=== PATIENT | female | born 1990 | race Caucasian/White ===

== ENCOUNTER 2017-06-09 14:02 | Inpatient (IN) | payer MEDICARE, MEDICAID ==
[~2017-06-09] VITALS: Ht 162.6 cm; Wt 131.3 kg
[2017-06-09 14:08] VITALS: BP 147/95; PULSE 89; RESP 17; TEMP 97.8; O2SAT 98
--- NOTE | 2017-06-09 16:51 | PD ---
HPI Chief Complaint: Psychiatric Symptoms Time Seen by Provider: 16:36 Travel History International Travel<30 days: No Contact w/Intl Traveler<30days: No Traveled to known affect area: No History of Present Illness HPI 27-year-old female presents emergency department Via [facility] department voluntarily with suicidal ideation. She states increased depression in the last couple of weeks. She has no specific plan. Patient has history of depression in the past. She takes no medications. She denies alcohol or drug use. She denies . She has no acute medical complaints. She has no known drug allergies. [facility] Past Medical History ?: Not LMP: 05/2017 Social History Alcohol Use: Yes Tobacco Use: No Substance Use: No Allergies-Medications (Allergen,Severity, Reaction): Coded Allergies: No Known Allergies (Unverified , 06/09/17) Review of Systems Except as stated in HPI: all other systems reviewed are Neg General / Constitutional: No: Fever Eyes: No: Visual changes HENT: No: Headaches Cardiovascular: No: Chest Pain or Discomfort Respiratory: No: Shortness of Breath Gastrointestinal: No: Abdominal Pain Genitourinary: No: Dysuria Musculoskeletal: No: Pain Skin: No Rash Neurologic: No: Weakness Psychiatric: Positive: Depression, Suicidal Ideations Endocrine: No: Polydipsia Hematologic/Lymphatic: No: Easy Bruising Physical Exam Narrative GENERAL: Patient appears in no acute distress. She has moderately obese. SKIN: Warm and dry. Normal color. Normal turgor. No signs of trauma. HEAD: Atraumatic. Normocephalic. EYES: Pupils equal and round. No scleral icterus. No injection or drainage. ENT: No nasal bleeding or discharge. Mucous membranes pink and moist. Pharynx is clear. Airways patent NECK: Trachea midline. Supple and nontender. CARDIOVASCULAR: Regular rate and rhythm. RESPIRATORY: No accessory muscle use. Clear to auscultation. Breath sounds equal bilaterally. GASTROINTESTINAL: Abdomen soft, non-tender, nondistended. Hepatic and splenic margins not palpable. MUSCULOSKELETAL: Extremities without clubbing, cyanosis, or edema. No obvious deformities. NEUROLOGICAL: Awake and alert. No obvious cranial nerve deficits. Motor grossly within normal limits. Five out of 5 muscle strength in the arms and legs. Normal speech. PSYCHIATRIC: Appropriate mood and affect; insight and judgment normal. Data Data Last Documented VS Vital Signs Date Time Temp Pulse Resp B/P (MAP) Pulse Ox O2 Delivery O2 Flow Rate FiO2 06/09/17 14:08 97.8 89 17 147/95 (112) 98 Orders Orders Complete Blood Count With Diff (06/09/17 16:47) Comprehensive Metabolic Panel (06/09/17 16:47) Thyroid Stimulating Hormone (06/09/17 16:47) Urinalysis - C+S If Indicated (06/09/17 16:47) Ed Urine Pregnancytest Poc (06/09/17 16:47) Psych Screen (06/09/17 16:47) Drug Screen, Random Urine (06/09/17 16:47) MDM Medical Decision Making Medical Screen Exam Complete: Yes Emergency Medical Condition: Yes Differential Diagnosis Suicidal. Depression. Need for psychiatric evaluation. Narrative Course Psychiatric labs ordered per protocol including test. Patient is medically cleared for psychiatric evaluation. Psych screen is ordered. Condition: Stable Trevor Valadez Jun 09, 2017 16:51
[2017-06-09 18:23] LABS: AMORPHOUS SEDIMENT, URINE RARE; BACTERIA, URINE RARE /hpf; BILIRUBIN, URINE NEG (NEG); BLOOD, URINE NEG (NEG); GLUCOSE,URINE NEG (NEG); KETONE, URINE NEG (NEG); MUCUS URINE MOD /lpf (OCC); NITRITE,URINE NEG (NEG); PH, URINE 6.5 (5.0-8.5); SQUAMOUS EPITHELIAL CELL URINE 23 /hpf (0-5); URINE COLOR YELLOW (YELLW/STRAW); URINE LEUKOCYTE ESTERASE TRACE (NEG)
[2017-06-09 18:28] VITALS: BP 122/76; PULSE 85; RESP 16; O2SAT 98
[2017-06-09 19:41] LABS: AUTOMATED NEUTROPHIL # 8.2 TH/MM3 (1.8-7.7); BASOPHIL # 0.1 TH/MM3 (0-0.2); BASOPHIL % 0.6 % (0.0-2.0); EOSINOPHIL # 0.1 TH/MM3 (0-0.4); EOSINOPHIL % 0.9 % (0.0-4.0); HEMATOCRIT 42.4 % (35.0-46.0); HEMOGLOBIN 14.1 GM/DL (11.6-15.3); LYMPH % 30.5 % (9.0-44.0); MEAN CELL VOLUME 80.9 FL (80.0-100.0); MEAN CORPUSCULAR HEMOGLOBIN 26.9 PG (27.0-34.0); MEAN CORPUSCULAR HGB CONC 33.2 % (32.0-36.0); MEAN PLATELET VOLUME 8.1 FL (7.0-11.0); MONO % 5.3 % (0.0-8.0); MONOCYTE # 0.7 TH/MM3 (0-0.9); NEUT % 62.7 % (16.0-70.0); PLATELET COUNT 279 TH/MM3 (150-450); RED BLOOD COUNT 5.24 MIL/MM3 (4.00-5.30); RED CELL DISTRIBUTION WIDTH 14.1 % (11.6-17.2); WHITE BLOOD COUNT 13.1 TH/MM3 (4.0-11.0)
[2017-06-09 19:53] LABS: ALBUMIN 3.7 GM/DL (3.4-5.0); AST (GOT) 19 U/L (15-37); BICARBONATE 24.8 MEQ/L (21.0-32.0); BLOOD UREA NITROGEN 8 MG/DL (7-18); CALCIUM 8.8 MG/DL (8.5-10.1); CHLORIDE 106 MEQ/L (98-107); CREATININE 0.73 MG/DL (0.50-1.00); GLOMERULAR FILTRATION RATE 96 ML/MIN (>89); GLUCOSE,RANDOM 93 MG/DL (74-106); SODIUM (NA) 139 MEQ/L (136-145)
[2017-06-09 20:06] LABS: ALKALINE PHOSPHATASE 104 U/L (45-117); ALT (GPT) 19 U/L (10-53); TOTAL BILIRUBIN ADULT 0.7 MG/DL (0.2-1.0); TOTAL PROTEIN 8.1 GM/DL (6.4-8.2)
[2017-06-09 22:20] VITALS: BP 112/66; PULSE 77; RESP 19; TEMP 98.2; O2SAT 96
[2017-06-10 06:09] VITALS: BP 119/61; PULSE 71; RESP 18; TEMP 98.7; O2SAT 97
[2017-06-10] MEDS ORDERED: MAGNESIUM HYDROXIDE SUSP 30 ML CUP PO PRN (12:00)
[2017-06-10] MEDS ORDERED: BENZTROPINE MESYLATE 1 MG TAB PO PRN (12:00)
[2017-06-10] MEDS ORDERED: ALUMINUM/MAGNESIUM/SIMETH 30 ML CUP PO PRN (12:00)
[2017-06-10] MEDS ORDERED: ACETAMINOPHEN 325 MG TAB PO PRN (12:00)
[2017-06-10] MEDS ORDERED: diphenhydrAMINE HCL 50 MG CAP PO PRN (12:00)
[2017-06-10] MEDS ORDERED: hydrOXYzine HCL 50 MG TAB PO PRN (12:00)
[2017-06-10] MEDS ORDERED: BENZTROPINE MESYLATE 2 MG/2 ML VIAL IM PRN (12:00)
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
[2017-06-10] MEDS ORDERED: NICOTINE 21 MG/24 HR PATCH T-DERMAL PRN (13:00)
[2017-06-10 14:30] VITALS: BP 135/76; PULSE 88; RESP 18; TEMP 97.5
[2017-06-10] MEDS: PALIPERIDONE ER 6 MG TAB PO SCH (20:20)
[2017-06-10] MEDS: cloNIDine HCL 0.1 MG TAB PO SCH (20:21)
[2017-06-10] MEDS ORDERED: traZODone HCL 100 MG TAB PO SCH (21:00)
[2017-06-11 06:05] VITALS: BP 146/82; PULSE 79; RESP 19; TEMP 97.2; O2SAT 99
[2017-06-11 08:36] LABS: AUTOMATED NEUTROPHIL # 7.2 TH/MM3 (1.8-7.7); BASOPHIL % 0.3 % (0.0-2.0); EOSINOPHIL # 0.2 TH/MM3 (0-0.4); EOSINOPHIL % 1.7 % (0.0-4.0); HEMATOCRIT 44.7 % (35.0-46.0); HEMOGLOBIN 14.9 GM/DL (11.6-15.3); LYMPH % 32.1 % (9.0-44.0); LYMPHOCYTE # 3.9 TH/MM3 (1.0-4.8); MEAN CELL VOLUME 81.3 FL (80.0-100.0); MEAN CORPUSCULAR HEMOGLOBIN 27.1 PG (27.0-34.0); MEAN CORPUSCULAR HGB CONC 33.3 % (32.0-36.0); MEAN PLATELET VOLUME 8.4 FL (7.0-11.0); MONO % 6.4 % (0.0-8.0); MONOCYTE # 0.8 TH/MM3 (0-0.9); NEUT % 59.5 % (16.0-70.0); PLATELET COUNT 300 TH/MM3 (150-450); RED CELL DISTRIBUTION WIDTH 14.1 % (11.6-17.2); WHITE BLOOD COUNT 12.2 TH/MM3 (4.0-11.0)
[2017-06-11] MEDS: REMOVE OLD PATCH T-DERMAL SCH (09:00)
[2017-06-11 09:03] LABS: CHOLESTEROL 140 MG/DL (120-200); TRIGLYCERIDES 111 MG/DL (42-150)
[2017-06-11 09:06] LABS: CHOLESTEROL/ HDL RATIO 4.32 RATIO; HDL CHOLESTEROL 32.4 MG/DL (40.0-60.0); LDL CHOLESTEROL 85 MG/DL (0-99)
[2017-06-11] MEDS: cloNIDine HCL 0.1 MG TAB PO SCH ×2 (09:24→21:17)
[2017-06-11] MEDS: PALIPERIDONE ER 6 MG TAB PO SCH (09:24)
--- NOTE | 2017-06-11 13:01 | HHI.PYPN ---
Subjective Remarks Patient seen and examined with nurse. Chart reviewed. Case discussed with nursing staff. On my examination today, the patient reports some ongoing feeling of formication but notes that the voices are at a minimum. She does not report any command auditory hallucinations. Mood remains somewhat depressed , although patient would like to hold off on adding an antidepressant at this time when offered. She experienced some urge to self injure overnight but denies any urge to self injure now. She had no nightmares overnight. She denies side effects from medications except that she notes that she has experienced nausea from trazodone in the past and did experience some nausea last night after she took it. She would like to keep this agent available it only as needed. No other physical complaints. Review of Systems Except as stated in HPI: all other systems reviewed are Neg Mental Status Examination Appearance: Appropriate Consciousness: Alert Orientation: x4 Motor Activity: Normal gait, Other (No motor abnormalities noted) Speech: Unremarkable Language: Adequate Fund of Knowledge: Adequate Attention and Concentration: Adequate Memory: Unremarkable (Grossly intact on clinical exam) Mood: Sad Affect: Appropriate (Fairly full and reactive) Thought Process & Associations: Intact, Logical, Linear Thought Content: Hallucinations Hallucination Type: Tactile Delusion Type: None Suicidal Ideation: No Suicidal Plan: No Suicidal Intention: No Homicidal Ideation: No Homicidal Plan: No Homicidal Intention: No Insight: Fair Judgment: Impulsive Results Labs Test 06/11/17 07:45 White Blood Count 12.2 TH/MM3 Red Blood Count 5.50 MIL/MM3 Hemoglobin 14.9 GM/DL Hematocrit 44.7 % Mean Corpuscular Volume 81.3 FL Mean Corpuscular Hemoglobin 27.1 PG Mean Corpuscular Hemoglobin Concent 33.3 % Red Cell Distribution Width 14.1 % Platelet Count 300 TH/MM3 Mean Platelet Volume 8.4 FL Neutrophils (%) (Auto) 59.5 % Lymphocytes (%) (Auto) 32.1 % Monocytes (%) (Auto) 6.4 % Eosinophils (%) (Auto) 1.7 % Basophils (%) (Auto) 0.3 % Neutrophils # (Auto) 7.2 TH/MM3 Lymphocytes # (Auto) 3.9 TH/MM3 Monocytes # (Auto) 0.8 TH/MM3 Eosinophils # (Auto) 0.2 TH/MM3 Basophils # (Auto) 0.0 TH/MM3 CBC Comment DIFF FINAL Differential Comment Triglycerides Level 111 MG/DL Cholesterol Level 140 MG/DL LDL Cholesterol 85 MG/DL HDL Cholesterol 32.4 MG/DL Cholesterol/HDL Ratio 4.32 RATIO Labs reviewed Vitals/IOs Vital Signs Date Time Temp Pulse Resp B/P (MAP) Pulse Ox O2 Delivery O2 Flow Rate FiO2 06/11/17 06:05 97.2 79 19 146/82 (103) 99 06/10/17 06:09 Room Air Assessment & Plan Problem List: (1) Other schizoaffective disorders ICD Codes: F25.8 - Other schizoaffective disorders (2) Cannabis abuse ICD Codes: F12.10 - Cannabis abuse, uncomplicated Assessment & Plan Continue Invega as ordered. To consider Sustenna. Continue clonidine as ordered. I will make trazodone as needed. To consider antidepressant. Continue to monitor on the inpatient unit. Continue other medications and care as ordered. Justification for Cont. Inpt. Risk for decompensation in less restrictive environment. Discharge Planning Pending psychiatric stabilization Tony Murry MD Jun 11, 2017 13:01
[2017-06-11 17:13] LABS: HEMOGLOBIN A1C 5.2 % (4.3-6.0)
[2017-06-11 17:15] VITALS: BP 130/71; PULSE 88; RESP 18; TEMP 97.3; O2SAT 98
[2017-06-11] MEDS ORDERED: traZODone HCL 100 MG TAB PO PRN (21:00)
--- NOTE | 2017-06-11 23:57 | EKG ---
Date Performed: 06/11/2017 Time Performed: 09:53:27 PTAGE: 27 years EKG: Sinus rhythm NORMAL ECG NO PREVIOUS TRACING DOCTOR: Ivan Drake Interpretating Date/Time 06/11/2017 23:55:59
[2017-06-12 06:08] VITALS: BP 95/50; PULSE 67; PULSE 77; RESP 18; TEMP 98.1; TEMP 98.9; O2SAT 98
[2017-06-12] MEDS: PALIPERIDONE ER 6 MG TAB PO SCH (08:33)
[2017-06-12] MEDS: cloNIDine HCL 0.1 MG TAB PO SCH (08:34)
[2017-06-12] MEDS: REMOVE OLD PATCH T-DERMAL SCH (09:00)
[2017-06-12 11:09] VITALS: BP 105/57; PULSE 90
--- NOTE | 2017-06-12 11:58 | HHI.PYPN ---
Subjective Remarks Patient seen and examined with nurse. Chart reviewed. Case discussed with nursing staff. Clonidine had to be held this morning secondary to blood pressure. Case discussed in treatment team. On my examination today, the patient says that she would like to find an alternative agent for her anxiety. After discussion of her options in this regard we settle on a trial of Prozac. She did experience some formication last night and we agreed to increase patient 's in [place] for this. No SI or HI voiced. No side effects from medications besides the hypotension. No physical complaints. Review of Systems Except as stated in HPI: all other systems reviewed are Neg Mental Status Examination Appearance: Appropriate Consciousness: Alert Orientation: x4 Motor Activity: Normal gait, Other (No hand tremor, no dystonia, no dyskinesia) Speech: Unremarkable Language: Adequate Fund of Knowledge: Adequate Attention and Concentration: Adequate Memory: Unremarkable (Grossly intact on clinical exam) Mood: Sad, Anxious Affect: Appropriate (Full and reactive) Thought Process & Associations: Intact, Logical, Linear Thought Content: Hallucinations Hallucination Type: Tactile Delusion Type: None Suicidal Ideation: No Suicidal Plan: No Suicidal Intention: No Homicidal Ideation: No Homicidal Plan: No Homicidal Intention: No Insight: Fair Judgment: Impulsive Results Labs Labs reviewed Vitals/IOs Vital Signs Date Time Temp Pulse Resp B/P (MAP) Pulse Ox O2 Delivery O2 Flow Rate FiO2 06/12/17 11:09 90 105/57 (73) 06/12/17 06:08 98.9 18 98 06/10/17 06:09 Room Air Assessment & Plan Problem List: (1) Other schizoaffective disorders ICD Codes: F25.8 - Other schizoaffective disorders (2) Cannabis abuse ICD Codes: F12.10 - Cannabis abuse, uncomplicated Assessment & Plan Discontinue clonidine. Initiate Prozac 20 mg daily with plans to titrate to effect. Titrate Invega to 9mg daily. To consider Invega Sustenna. Continue to monitor on the inpatient unit. Continue other medications and care as ordered. Justification for Cont. Inpt. Medication changes. Risk for decompensation in less restrictive environment. Discharge Planning Pending psychiatric stabilization Request HC Surrog/Guard Advoc?: No Tony Murry MD Jun 12, 2017 11:58
[2017-06-12] MEDS ORDERED: PALIPERIDONE ER 3 MG TAB PO ONE (12:00)
--- NOTE | 2017-06-12 15:43 | PD.TTN ---
Patient Problems 1. Discharge planning 2. Medication compliance 3. Knowledge deficit 4. Lack of coping skills Progress Toward Goals Provider Present: Dr. Ridge Murry Provider Input: 06/12/17 will possibly get her on Invega shot/ medications to be adjusted Psychiatric Counselors Present: Faith Cleveland LCSW Psych Therapist Input: 06/12/17 patient is motivated for therapy and engages in group , at times talkative and socialzes some Group Spec/RT/OT/SKINNER Present: JUANCHO Alcocer Group Spec/RT/OT/SKINNER Input: 06/12/17 new to rec therapy Faith Cleveland LCSW Jun 12, 2017 15:43
[2017-06-12] MEDS: FLUoxetine HCL 20 MG CAP PO SCH (18:26)
[2017-06-13 05:42] VITALS: BP 102/51; PULSE 73; RESP 18; TEMP 98.6; O2SAT 98
[2017-06-13] MEDS: REMOVE OLD PATCH T-DERMAL SCH (09:00)
[2017-06-13] MEDS: FLUoxetine HCL 20 MG CAP PO SCH (09:00)
[2017-06-13] MEDS: PALIPERIDONE ER 3 MG TAB PO SCH (09:01)
--- NOTE | 2017-06-13 10:17 | HHI.PYPN ---
Subjective Remarks Patient seen and examined with nurse. Chart reviewed. Case discussed with nursing staff. No behavioral issues noted overnight. Case discussed with counselor. On my examination today, the patient is in good spirits and reports that her mood is subjectively improved. She does report that she slept poorly overnight secondary to deprecatory auditory hallucinations. No reported command auditory hallucinations. Denies audiovisual hallucinations or any other hallucinatory material now. Denies SI or HI. Says that she feels somewhat "energized" but I can elicit no other hypomanic or manic symptoms. Denies side effects from medications. Would like to try a different hypnotic. No physical complaints. Review of Systems Except as stated in HPI: all other systems reviewed are Neg Mental Status Examination Appearance: Appropriate Consciousness: Alert Orientation: x4 Motor Activity: Normal gait, Other (No motor abnormalities noted) Speech: Unremarkable Language: Adequate Fund of Knowledge: Adequate Attention and Concentration: Adequate Memory: Unremarkable (Remains intact on clinical exam) Mood: Good Affect: Appropriate (Full and reactive) Thought Process & Associations: Intact, Logical, Linear, Other (No loosening of associations) Thought Content: Hallucinations Hallucination Type: None Delusion Type: None Suicidal Ideation: No Suicidal Plan: No Suicidal Intention: No Homicidal Ideation: No Homicidal Plan: No Homicidal Intention: No Insight: Fair Judgment: Impulsive Results Labs Labs reviewed Vitals/IOs Vital Signs Date Time Temp Pulse Resp B/P (MAP) Pulse Ox O2 Delivery O2 Flow Rate FiO2 06/13/17 05:42 98.6 73 18 102/51 (68) 98 06/10/17 06:09 Room Air Intake and Output 06/13/17 06/13/17 06/14/17 08:00 16:00 00:00 Intake Total 240 ml Balance 240 ml Assessment & Plan Problem List: (1) Other schizoaffective disorders ICD Codes: F25.8 - Other schizoaffective disorders (2) Cannabis abuse ICD Codes: F12.10 - Cannabis abuse, uncomplicated Assessment & Plan Continue Prozac and Invega as ordered. To consider further titration of antipsychotic should psychotic symptoms persist. Monitor for any induction of nel with antidepressant. Discontinue trazodone and continue Benadryl for sleep. Continue other medications and care as ordered. Justification for Cont. Inpt. Risk for decompensation in less restrictive environment. Discharge Planning Pending psychiatric stabilization Request HC Surrog/Guard Advoc?: No Tony Murry MD Jun 13, 2017 10:17
[2017-06-13 18:15] VITALS: BP 134/75; PULSE 81; RESP 18; TEMP 97.6; O2SAT 98
[2017-06-14 05:15] VITALS: BP 118/60; PULSE 70; RESP 16; TEMP 97.9; O2SAT 98
[2017-06-14] MEDS: REMOVE OLD PATCH T-DERMAL SCH (10:00)
[2017-06-14] MEDS: PALIPERIDONE ER 3 MG TAB PO SCH (10:04)
[2017-06-14] MEDS: FLUoxetine HCL 20 MG CAP PO SCH (10:06)
--- NOTE | 2017-06-14 11:19 | HHI.PYPN ---
Subjective Remarks Patient seen and examined. Chart reviewed. Case discussed with nursing staff who notes patient is visible on the unit and denying audiovisual hallucinations. Patient reportedly slept 7 hours overnight. On my examination today, the patient reports that she slept well and feels "great" today. Denies AVH. Denies SI, SIB, HI. No hypomanic or manic symptoms. She would like to start Invega Sustenna. No side effects from medications besides some mild, transient "haziness," tolerable. No physical complaints. Review of Systems Except as stated in HPI: all other systems reviewed are Neg Mental Status Examination Appearance: Appropriate Consciousness: Alert Orientation: x4 Motor Activity: Normal gait, Other (No abnormal motor movements noted) Speech: Unremarkable Language: Adequate Fund of Knowledge: Adequate Attention and Concentration: Adequate Memory: Unremarkable (Remains grossly intact on clinical exam) Mood: Appropriate, Good Affect: Appropriate, Euthymic Thought Process & Associations: Intact, Logical, Linear Thought Content: Appropriate Hallucination Type: None Delusion Type: None Suicidal Ideation: No Suicidal Plan: No Suicidal Intention: No Homicidal Ideation: No Homicidal Plan: No Homicidal Intention: No Insight: Adequate Judgment: Adequate Results Labs Labs reviewed Vitals/IOs Vital Signs Date Time Temp Pulse Resp B/P (MAP) Pulse Ox O2 Delivery O2 Flow Rate FiO2 06/14/17 05:15 97.9 70 16 118/60 (79) 98 Assessment & Plan Problem List: (1) Other schizoaffective disorders ICD Codes: F25.8 - Other schizoaffective disorders (2) Cannabis abuse ICD Codes: F12.10 - Cannabis abuse, uncomplicated Assessment & Plan Patient continues to improve. Initiate Invega Sustenna 234mg IM today with plan for booster dose on outpatient basis. Continue other psychotropics as ordered. Continue other medications and care as ordered. Justification for Cont. Inpt. Med changes Discharge Planning Possible discharge tomorrow, Sunday Request HC Surrog/Guard Advoc?: No Tony Murry MD Jun 14, 2017 11:19
[2017-06-14] MEDS ORDERED: PALIPERIDONE PALMITATE 234 MG/1.5 ML SYRINGE IM ONE (12:00)
[2017-06-14 18:20] VITALS: BP 161/83; PULSE 88; RESP 17; TEMP 97.6; O2SAT 98
[2017-06-14 18:27] VITALS: BP 161/77
[2017-06-15 05:24] VITALS: BP 126/75; PULSE 71; RESP 16; TEMP 97.9; O2SAT 98
[2017-06-15] MEDS: PALIPERIDONE ER 3 MG TAB PO SCH (09:24)
[2017-06-15] MEDS: REMOVE OLD PATCH T-DERMAL SCH (09:25)
[2017-06-15] MEDS: FLUoxetine HCL 20 MG CAP PO SCH (09:25)
[2017-06-15] MEDS ORDERED: FLUO20CA12 PO (13:44)
[2017-06-15] MEDS ORDERED: INVE3TAB2 PO (13:44)
[2017-06-15] MEDS ORDERED: PALI156P IM (13:44)
--- NOTE | 2017-06-15 13:44 | HHI.DS ---
Psychiatry Discharge Summary Inpatient Psychiatric care?: Yes Advance Directive: No Reason Not Provided: Not provided Mental Health AdvanceDirective: No Health Care Proxy: No Admission Admission Date Jun 10, 2017 at 11:40 Admission Diagnosis: (1) Other schizoaffective disorders ICD Code: F25.8 - Other schizoaffective disorders (2) Cannabis abuse ICD Code: F12.10 - Cannabis abuse, uncomplicated Brief History Ms. Farrell is a 27-year-old female with reported history of schizoaffective disorder who presents voluntarily for psychiatric evaluation. She told the ED provider that she has been feeling increasingly depressed over the last couple of weeks. Reviewing our electronic medical record, I note this is the patient's first visit to [facility]. The patient seen and examined. Chart reviewed. Case discussed with nursing staff. On my examination today, the patient notes that she went off of her psychotropic medications about 5 months ago. She has been experiencing worsening depression since then. She says "I have been feeling really low lately." She reports social isolation, increased need for sleep, and decreased appetite. She also reports the onset of deprecatory and auditory hallucinations as well as command auditory hallucinations to self injure. She endorses suicidal ideation beginning yesterday with plan to cut herself. She contracts for safety on the inpatient unit. In addition to the auditory hallucinations, she also reports some formication and does have some scratches on her forearms bilaterally. She reports some vague paranoia that she is being followed. She also occasionally sees figures of children. No hypomanic or manic symptoms presently. Remainder of the psychiatric ROS is negative. The patient has no acute physical complaints. Tobacco Use In Past 30 Days: Cigarettes But Not Daily Alcohol Use: Never Hospital Course Patient was admitted to a locked, inpatient psychiatric unit. Appropriate precautions were in place throughout patient's hospital stay. Patient was seen and examined on the unit by psychiatry and also visited by counselor. Psychotropic medications were adjusted. Patient had improvement in presenting psychiatric symptomatology during the course of her hospital stay. There was no evidence of any suicidality or homicidality on the inpatient unit. There was no evidence of self-care deficit. Patient remained in good behavioral control and was medication compliant. On the day of discharge: Patient seen and examined with nurse. Chart reviewed. Case discussed with nursing staff who reports patient is "doing really well" on the inpatient unit. Case discussed in treatment team. On my examination today, the patient feels ready for discharge from the inpatient psychiatric unit today. She notes "I feel great!" Mood is improved and I can elicit no depressive or hypomanic/manic symptoms. She denies any suicidal or homicidal ideation, intent or plan on direct questioning and contracts for safety. She denies any audiovisual hallucinations or other hallucinatory material. I can elicit no delusional beliefs. There is no evidence of impairment in reality construction. She denies side effects from medications. Education provided regarding discharge medication regimen including the need for booster dose of Invega Sustenna after the weekend. I have also recommended that she temporarily supplemented with oral Invega, at least until she gets the booster dose of Sustenna or as directed by outpatient provider, but I have explained that prolonged oral supplementation is not required with Invega Sustenna. She has no physical complaints. Suicide and violence risk assessment on day of discharge both suggest lower imminent risk from mental illness, and the patient's level of function is adequate for outpatient care. The patient has maximized benefit from this inpatient psychiatric hospital stay and will be discharged today with psychiatric follow-up as arranged by counselor. Patient is also to follow up with primary care. I have counseled the patient to abstain from substances of abuse. I have counseled the patient regarding warning signs for need to return to the psychiatric emergency room as part of a general safety plan. Results Blood Pressure 126 / 75 Vital Signs Date Time Temp Pulse Resp B/P (MAP) Pulse Ox O2 Delivery O2 Flow Rate FiO2 06/15/17 05:24 97.9 71 16 126/75 (92) 98 Laboratory Results Test 06/11/17 07:45 Cholesterol Level 140 MG/DL (120-200) HDL Cholesterol 32.4 MG/DL (40.0-60.0) Hemoglobin A1c 5.2 % (4.3-6.0) LDL Cholesterol 85 MG/DL (0-99) Triglycerides Level 111 MG/DL (42-150) Summary of Procedures None done Imaging None done Pending results at discharge: No Medications # of Antipsychotic meds at D/C: 1 Approp Antipsych med options 1 - Minimum of three failed multiple trials of monotherapy. 2 - Documented plan to taper to monotherapy due to previous use of multiple meds OR cross-taper in progress at D/C. 3 - Documentation of augmentation of Clozapine. 4 - Justification other than those listed in allowable values 1-3, document here : Discharge Discharge Date: Jun 15, 2017 Discharge Diagnosis: (1) Other schizoaffective disorders Diagnosis: Principal (Stabilized) ICD Code: F25.8 - Other schizoaffective disorders (2) Cannabis abuse Diagnosis: Secondary (Counseled to quit) ICD Code: F12.10 - Cannabis abuse, uncomplicated Pt Condition on Discharge: Stable Discharge Disposition: Discharge Home Discharge Instructions Diet Instructions: As Tolerated, No Restrictions Activities you can perform: Weight Bearing as Bessy Scheduled Appointment: [facility] Appointment Date: Jun 18, 2017 Appointment Time: 11:30 am New Orders: CBC WITH DIFF - 1 Week New Medications: Paliperidone Palmitate Inj (Invega Sustenna Inj) 156 Mg/Ml Inj 156 MG IM Q28D for Schizophrenia, #1 VIAL 0 Refills This dose of Invega Sustenna is due no earlier than 06/18 and no later than 06/21/2017. Fluoxetine (Fluoxetine) 20 Mg Capsule 20 MG PO DAILY for Mental Health for 15 Days, #15 CAP 1 Refill Paliperidone ER (Invega) 3 Mg Tab 9 MG PO DAILY for Mental Health for 15 Days, #45 TAB 0 Refills Discharge Time <= 30 minutes Mental Status Examination Appearance: Appropriate Consciousness: Alert Orientation: x4 Motor Activity: Normal gait, Other (No hand tremor, no cogwheeling, no dystonia , no dyskinesia, no other motor abnormalities noted.) Speech: Unremarkable Language: Adequate Fund of Knowledge: Adequate Attention and Concentration: Adequate Memory: Unremarkable (Remains grossly intact on clinical exam) Mood: Appropriate, Good Affect: Appropriate, Euthymic Thought Process & Associations: Intact, Logical, Goal directed, Linear Thought Content: Appropriate Hallucination Type: None Delusion Type: None Suicidal Ideation: No Suicidal Plan: No Suicidal Intention: No Homicidal Ideation: No Homicidal Plan: No Homicidal Intention: No Insight: Adequate Judgment: Adequate Discharge/Advance Care Plan Health Problems: (1) Other schizoaffective disorders (2) Cannabis abuse Goals to promote your health * To prevent worsening of your condition and complications * To maintain your health at the optimal level Directions to meet your goals Take your medications as prescribed Follow your dietary instruction Follow activity as directed Keep your appointments as scheduled Take your immunizations and boosters as scheduled If your symptoms worsen call your PCP, if no PCP go to Urgent Care Center or Emergency Room For 11/09 questions related to your inpatient stay or results of tests pending at discharge, please contact Dr. Tony Murry at Smoking is Dangerous to Your Health. Avoid second hand smoking Tony Murry MD Jun 15, 2017 13:44
--- NOTE | 2017-06-16 07:54 | PD.TTN ---
Patient Problems 1. Discharge planning 2. Medication compliance 3. Knowledge deficit 4. Lack of coping skills Progress Toward Goals Provider Present: Dr. Ridge Murry Provider Input: 06/15/17 pending discharge today 06/12/17 will possibly get her on Invega shot/ medications to be adjusted Psychiatric Counselors Present: Faith Cleveland LCSW Psych Therapist Input: 06/15/17 appears improved and motivated for outpatient care/therapy 06/12/17 patient is motivated for therapy and engages in group , at times talkative and socialzes some Group Spec/RT/OT/SKINNER Present: JUANCHO Alcocer Group Spec/RT/OT/SKINNER Input: 06/15/17 does attend groups, insightful, appropriate , engages and follows rules 06/12/17 new to rec therapy Faith Cleveland LCSW Jun 16, 2017 07:54
== END 2017-06-15 15:50 | disposition home or self-care (01) | DRG 885 ==
LOC: NEPJ 14:02 → NEDA 06-10 11:40 → H260 06-10 14:15
PROVIDERS: ADMIT Psychiatry & Neurology Psychiatry; ATTEND Psychiatry & Neurology Psychiatry
DX: F25.1 Schizoaffective disorder, depressive type (principal); R45.851 Suicidal ideations; Z68.42 Body mass index [BMI] 45.0-49.9, adult; F12.10 Cannabis abuse, uncomplicated; F41.9 Anxiety disorder, unspecified; I95.2 Hypotension due to drugs; R20.2 Paresthesia of skin; E66.9 Obesity, unspecified; Z62.810 Personal history of physical and sexual abuse in childhood; Z72.0 Tobacco use; Z91.5 Personal history of self-harm; Z91.14 Patient's other noncompliance with medication regimen
CPT/HCPCS: 80053; 80061; 80307; 81001; 83036; 84443; 84703; 85025; 93005; J2426; Q0163

== ENCOUNTER 2017-11-01 12:15 | Inpatient (IN) ==
--- NOTE | 2017-11-01 14:14 | ED ---
HPI General Chief Complaint: Psychiatric Symptoms Stated Complaint: Psych Eval Time Seen by Provider: 11/01/17 17:50 Source: patient Mode of arrival: ambulatory Limitations: no limitations History of Present Illness HPI Narrative: 27-year-old female presents to the emergency room voluntarily for evaluation of suicidal ideation. States she has been in a depressed mood for the past 1.5 months. She has a psychiatrist and counselor and told him within the past week. Her psychiatrist prescribed her antidepressants 3 days ago but she has not had them filled. States she become increasingly suicidal over the past 2 days to she came to the emergency room. No eliciting factors. Denies any chronic medical conditions or daily medications. Denies any medical complaints at this time. MD complaint: suicidal ideation and feels depressed Onset (ago): day(s) Duration: constant and getting worse History of same: Yes Relieving factors: none Exacerbating factors: none Context: not taking psychiatric medications Associated symptoms: denies other symptoms Treatments prior to arrival: none If self harm: admits thoughts of self harm Related Data Previous Rx's Medication Instructions Recorded bupropion HCl [Wellbutrin XL] 300 mg PO QAM 30 Days #30 tab 11/07/17 diphenhydramine HCl 50 mg PO HS PRN 30 Days #30 cap 11/07/17 ziprasidone HCl [Geodon] 20 mg PO BID 30 Days #60 cap 11/07/17 Allergies Allergy/AdvReac Type Severity Reaction Status Date / Time No Known Allergies Allergy Unverified 11/01/17 14:05 Review of Systems ROS: all other systems reviewed are negative PMFSH Medical History Medical History Patient denies medical problems (Acute) Surgical History Surgical History No history of previous surgery (Acute) Family History Family History Other Bipolar disorder Depression Social History Social History Substance History: No History of Abuse Second Hand Smoke Exposure: Yes Smoking Status: Heavy tobacco smoker Tobacco Type: Cigarettes How Often Do You Have a Drink Containing Alcohol: Never Recent Travel in [place] within the Last 8 Weeks: No Recent Out of Country Travel within the Last 8 Weeks: No Immunization History Tetanus Immunization: <5 Years Tetanus Immunization Year if Known: 2yrs Hx Influenza Vaccine This Season: No Exam Narrative Exam Narrative: GENERAL: Well-nourished, well-developed female no acute distress. Afebrile. Ambulatory. SKIN: Focused skin assessment warm/dry. HEAD: Normocephalic. EYES: No scleral icterus. No injection or drainage. NECK: Supple, trachea midline. No JVD or lymphadenopathy. CARDIOVASCULAR: Regular rate and rhythm without murmurs, gallops, or rubs. RESPIRATORY: Breath sounds equal bilaterally. No accessory muscle use. PSYCHIATRIC: No delusional thought processes. No hallucinations. Good mood. Normal affect. Course Initial Documented Vital Signs Temperature 98.0 F 11/01/17 12:22 Pulse Rate 93 H 11/01/17 12:22 Respiratory Rate 20 11/01/17 12:22 Blood Pressure 123/85 11/01/17 12:22 Pulse Oximetry 97 11/01/17 12:22 Last Documented Vital Signs Temperature 98.3 F 11/07/17 07:55 Pulse Rate 95 H 11/07/17 07:55 Respiratory Rate 18 11/07/17 07:55 Blood Pressure 143/67 H 11/07/17 07:55 Pulse Oximetry 98 11/07/17 07:55 Medical Decision Making MDM Narrative Medical decision making narrative: 27-year-old female with a history of schizoaffective disorder presents to the emergency room for evaluation of suicidal ideation and depression the past 1.5 months that it worsened over the past couple days. She went to her psychiatrist 3 days ago and is given a prescription but has not had it filled yet. She denies any medical complaints. Physical exam unremarkable. Vital signs stable. She is medically cleared for psychiatric evaluation. Medical Screen Exam Complete: Yes Emergency Medical Condition: Yes Differential Diagnosis Differential Diagnosis: Suicidal ideation, depression, PTSD, bipolar disorder Lab Data Result diagrams: 11/01/17 18:41 11/03/17 07:28 Lab Results 11/01/17 11/01/17 11/01/17 Range/Units 13:45 18:41 18:41 WBC 13.7 H (4.0-11.0) th/mm3 RBC 5.11 (4.00-5.30) mil/mm3 Hgb 13.8 (11.6-15.3) gm/dL Hct 42.6 (35.0-46.0) % MCV 83.3 (80.0-100.0) fL MCH 27.0 (27.0-34.0) pg MCHC 32.4 (32.0-36.0) % RDW 13.8 (11.6-17.2) % Plt Count 276 (150-450) th/mm3 MPV 8.8 (7.0-11.0) fL Neut % (Auto) 73.5 H (16.0-70.0) % Lymph % (Auto) 20.8 (9.0-44.0) % [place] % (Auto) 4.5 (0.0-8.0) % Eos % (Auto) 0.8 (0.0-4.0) % Baso % (Auto) 0.4 (0.0-2.0) % Neut # (Auto) 10.1 H (1.8-7.7) th/mm3 Lymph # (Auto) 2.8 (1.0-4.8) th/mm3 [place] # (Auto) 0.6 (0.0-0.9) th/mm3 Eos # (Auto) 0.1 (0.0-0.4) th/mm3 Baso # (Auto) 0.1 (0.0-0.2) th/mm3 WBC Differential . Differential Comment Auto diff final Sodium 142 (136-145) meq/L Potassium 3.8 (3.5-5.1) meq/L Chloride 109 H (98-107) meq/L Carbon Dioxide 23.8 (21.0-32.0) meq/L Anion Gap 9 (5-15) meq/L BUN 8 (7-18) mg/dL Creatinine 0.64 (0.50-1.00) mg/dL Estimated GFR Greater than 89 (>89) mL/min Random Glucose 102 (74-106) mg/dL Hemoglobin A1c (4.3-6.0) % Calcium 8.7 (8.5-10.1) mg/dL Total Bilirubin 0.5 (0.2-1.0) mg/dL AST 7 L (15-37) U/L ALT 15 (10-53) U/L Alkaline Phosphatase 101 (45-117) U/L Total Protein 7.7 (6.4-8.2) g/dL Albumin 3.7 (3.4-5.0) g/dL Triglycerides (42-150) mg/dL Cholesterol (120-200) mg/dL LDL Cholesterol, Calc (0-99) mg/dL HDL Cholesterol (40.0-60.0) mg/dL Cholesterol/HDL Ratio Ratio Urine Opiates Screen Neg (Neg) Ur Barbiturates Screen Neg (Neg) Ur Amphetamines Screen Neg (Neg) U Benzodiazepines Scrn Neg (Neg) Urine Cocaine Screen Neg (Neg) U Cannabinoids Screen Pos H (Neg) 11/03/17 11/03/17 Range/Units 07:28 07:28 WBC (4.0-11.0) th/mm3 RBC (4.00-5.30) mil/mm3 Hgb (11.6-15.3) gm/dL Hct (35.0-46.0) % MCV (80.0-100.0) fL MCH (27.0-34.0) pg MCHC (32.0-36.0) % RDW (11.6-17.2) % Plt Count (150-450) th/mm3 MPV (7.0-11.0) fL Neut % (Auto) (16.0-70.0) % Lymph % (Auto) (9.0-44.0) % [place] % (Auto) (0.0-8.0) % Eos % (Auto) (0.0-4.0) % Baso % (Auto) (0.0-2.0) % Neut # (Auto) (1.8-7.7) th/mm3 Lymph # (Auto) (1.0-4.8) th/mm3 [place] # (Auto) (0.0-0.9) th/mm3 Eos # (Auto) (0.0-0.4) th/mm3 Baso # (Auto) (0.0-0.2) th/mm3 WBC Differential Differential Comment Sodium 144 (136-145) meq/L Potassium 4.0 (3.5-5.1) meq/L Chloride 110 H (98-107) meq/L Carbon Dioxide 24.6 (21.0-32.0) meq/L Anion Gap 9 (5-15) meq/L BUN 9 (7-18) mg/dL Creatinine 0.62 (0.50-1.00) mg/dL Estimated GFR Greater than 89 (>89) mL/min Random Glucose 84 (74-106) mg/dL Hemoglobin A1c 5.3 (4.3-6.0) % Calcium 8.4 L (8.5-10.1) mg/dL Total Bilirubin (0.2-1.0) mg/dL AST (15-37) U/L ALT (10-53) U/L Alkaline Phosphatase (45-117) U/L Total Protein (6.4-8.2) g/dL Albumin (3.4-5.0) g/dL Triglycerides 93 (42-150) mg/dL Cholesterol 116 L (120-200) mg/dL LDL Cholesterol, Calc 72 (0-99) mg/dL HDL Cholesterol 25.7 L (40.0-60.0) mg/dL Cholesterol/HDL Ratio 4.51 Ratio Urine Opiates Screen (Neg) Ur Barbiturates Screen (Neg) Ur Amphetamines Screen (Neg) U Benzodiazepines Scrn (Neg) Urine Cocaine Screen (Neg) U Cannabinoids Screen (Neg) Discharge Plan Discharge Disposition Patient Disposition: 30 Still Patient Discharge Condition Condition: Stable Discharge Order Discharge Orders: Discharge Order (Routine); Ordered 11/07/17 Ordered By: Jane Santos Physicians Team ED Provider: Karma Hernandez ED Midlevel Provider: Kathy Foley Primary Care Provider: UNKNOWN, Attending Provider: Abhishek Mehta Status ED Status: Left Department Discharge Information Discharge Date/Time: 11/01/17 19:33
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
[2017-11-01] MEDS ORDERED: Aluminum/Magnesium/Simethacone Susp 30 ML UDC PO PRN (18:49)
[2017-11-01 19:00] LABS: Baso # (Auto) 0.1 th/mm3 (0.0-0.2); Baso % (Auto) 0.4 % (0.0-2.0); Eos # (Auto) 0.1 th/mm3 (0.0-0.4); Eos % (Auto) 0.8 % (0.0-4.0); Hematocrit 42.6 % (35.0-46.0); Hemoglobin 13.8 gm/dL (11.6-15.3); Lymph # (Auto) 2.8 th/mm3 (1.0-4.8); Lymph % (Auto) 20.8 % (9.0-44.0); Mean Corpuscular HGB Conc 32.4 % (32.0-36.0); Mean Corpuscular Volume 83.3 fL (80.0-100.0); Mean Platelet Volume 8.8 fL (7.0-11.0); Mono # (Auto) 0.6 th/mm3 (0.0-0.9); Mono % (Auto) 4.5 % (0.0-8.0); Neut # (Auto) 10.1 th/mm3 (1.8-7.7); Neut % (Auto) 73.5 % (16.0-70.0); Platelet Count 276 th/mm3 (150-450); Red Blood Count 5.11 mil/mm3 (4.00-5.30); Red Cell Distribution Width 13.8 % (11.6-17.2); White Blood Count 13.7 th/mm3 (4.0-11.0)
[2017-11-01 19:12] LABS: Amphetamine Screen,Urine Neg (Neg); Barbiturate Screen,Urine Neg (Neg); Cannabinoid Screen,Urine Pos (Neg); Cocaine Screen,Urine Neg (Neg)
[2017-11-01 19:14] LABS: Opiate Screen,Urine Neg (Neg)
[2017-11-01 19:18] LABS: Albumin 3.7 g/dL (3.4-5.0); Anion Gap 9 meq/L (5-15); Aspartate Aminotransferase 7 U/L (15-37); Blood Urea Nitrogen 8 mg/dL (7-18); Calcium 8.7 mg/dL (8.5-10.1); Carbon Dioxide 23.8 meq/L (21.0-32.0); Chloride 109 meq/L (98-107); Glomerular Filtration Rate Greater Than 89 mL/min (>89); Glucose,Random 102 mg/dL (74-106); Potassium 3.8 meq/L (3.5-5.1); Sodium 142 meq/L (136-145)
[2017-11-01 19:19] LABS: Alanine Aminotransferase 15 U/L (10-53)
[2017-11-01 19:22] LABS: Alkaline Phosphatase 101 U/L (45-117); Total Protein 7.7 g/dL (6.4-8.2)
[2017-11-01] MEDS: Senna/Docusate Sodium 8.6/50 MG Tablet PO SCH (22:40)
[2017-11-01] MEDS: Ibuprofen 600 MG Tablet PO SCH (22:40)
[2017-11-02] MEDS: Ibuprofen 600 MG Tablet PO SCH ×3 (06:19→21:00)
[2017-11-02] MEDS: Senna/Docusate Sodium 8.6/50 MG Tablet PO SCH ×2 (10:04→20:53)
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
[2017-11-02] MEDS: buPROPion 150 MG 12 HR Tablet PO SCH ×2 (15:22→20:54)
[2017-11-03 08:41] LABS: Blood Urea Nitrogen 9 mg/dL (7-18); Calcium 8.4 mg/dL (8.5-10.1); Carbon Dioxide 24.6 meq/L (21.0-32.0); Cholesterol 116 mg/dL (120-200); Glomerular Filtration Rate Greater Than 89 mL/min (>89); Glucose,Random 84 mg/dL (74-106)
[2017-11-03 08:43] LABS: Chol/HDL Ratio 4.51 Ratio; HDL Cholesterol 25.7 mg/dL (40.0-60.0); LDL Cholesterol,Calculated 72 mg/dL (0-99); Triglycerides 93 mg/dL (42-150)
[2017-11-03 08:55] LABS: Anion Gap 9 meq/L (5-15); Chloride 110 meq/L (98-107); Sodium 144 meq/L (136-145)
[2017-11-03] MEDS: buPROPion 150 MG 12 HR Tablet PO SCH ×2 (09:30→20:57)
[2017-11-03] MEDS: Senna/Docusate Sodium 8.6/50 MG Tablet PO SCH ×2 (09:32→20:58)
[2017-11-03] MEDS: Ibuprofen 600 MG Tablet PO SCH ×3 (09:54→22:51)
[2017-11-03 13:10] LABS: Hemoglobin A1c 5.3 % (4.3-6.0)
--- NOTE | 2017-11-03 15:35 | P.PNPSY ---
Subjective Remarks: Reviewed electronic medical records and discussed case with staff. Follow-up was conducted in patient's room. Patient found lying in bed. She reports that she has been sleeping well and her appetite has been good. She describes her mood as "indifferent". States that the Geodon has been making her sleepy but denies any other side effects from the medication. She denies having any suicidal ideation today. Mental Status Examination Appearance: Appropriate, Other (Patient morbidly obese) Consciousness: Alert Orientation: x4 Motor Activity: Normal gait Speech: Unremarkable Language: Adequate Fund of Knowledge: Adequate Attention and Concentration: Adequate Memory: Unremarkable Mood: Sad Affect: Appropriate Thought Process & Associations: Intact, Logical, Goal directed Thought Content: Hallucinations Hallucination Type: Auditory, Command (To self injure) Delusion Type: None Suicidal Ideation: Yes Suicidal Plan: No Suicidal Intention: No Homicidal Ideation: No Homicidal Plan: No Homicidal Intention: No Insight: Fair Judgment: Adequate Assessment and Plan - Plan Plan: Patient will be reevaluated Sunday by the attending psychiatrist. Continue with current treatment plan. Justification for Continued Inpatient Stay: Moving this patient to a less restrictive environment would likely result in decompensation. Request Healthcare Surrogate/Guardian Advocate?: No
--- NOTE | 2017-11-03 22:26 | ECG ---
Date Performed: 11/02/2017 Time Performed: 10:22:32 PTAGE: 27 years EKG: Sinus rhythm NORMAL ECG PREVIOUS TRACING : 06/11/2017 09.53 DOCTOR: Sara Henriquez Interpretating Date/Time 11/03/2017 22:19:00
[2017-11-04] MEDS: buPROPion 150 MG 12 HR Tablet PO SCH ×2 (09:17→20:50)
[2017-11-04] MEDS: Senna/Docusate Sodium 8.6/50 MG Tablet PO SCH ×2 (09:17→20:51)
[2017-11-04] MEDS: Ibuprofen 600 MG Tablet PO SCH ×3 (13:46→22:00)
--- NOTE | 2017-11-04 14:33 | P.PNPSY ---
Subjective Chief Complaint: Schizoaffective Remarks: Reviewed electronic medical records and discussed case with staff. Follow-up was conducted in dayroom with BILLY Thompson. Patient states that she is still having thoughts of self-harm. She is currently on Geodon which is making her sleepy. May need to take medications earlier in the am with a snack. She is actively participating in group and unit activities. States she is sleeping and eating well. Review of Systems All other systems reviewed negative except as stated in HPI Mental Status Examination Appearance: Appropriate, Other (Patient morbidly obese) Consciousness: Alert Orientation: x4 Motor Activity: Normal gait Speech: Unremarkable Language: Adequate Fund of Knowledge: Adequate Attention and Concentration: Adequate Memory: Unremarkable Mood: Sad Affect: Appropriate Thought Process & Associations: Intact, Logical, Goal directed Thought Content: Hallucinations Hallucination Type: None, Auditory Delusion Type: None Suicidal Ideation: Yes (thoughts of self harm , but does not feel she will act upon them) Suicidal Plan: No Suicidal Intention: No Homicidal Ideation: No Homicidal Plan: No Homicidal Intention: No Insight: Fair Judgment: Adequate Assessment and Plan - Assessment (1) Schizoaffective disorder Code(s): F25.9 - Schizoaffective disorder, unspecified Status: Acute - Plan Plan: Patient will be reevaluated Sunday by the attending psychiatrist. Continue with current treatment plan. Justification for Continued Inpatient Stay: Moving patient to a less restrictive environment may result in her decompensation. Request Healthcare Surrogate/Guardian Advocate?: No (1) Schizoaffective disorder Qualifiers: Schizoaffective disorder type: depressive Qualified Code(s): F25.1 - Schizoaffective disorder, depressive type
[2017-11-05] MEDS: buPROPion 150 MG 12 HR Tablet PO SCH ×2 (09:26→21:04)
[2017-11-05] MEDS: Ibuprofen 600 MG Tablet PO SCH ×3 (09:48→21:04)
[2017-11-05] MEDS: Senna/Docusate Sodium 8.6/50 MG Tablet PO SCH ×2 (09:49→21:04)
--- NOTE | 2017-11-05 14:22 | P.PNPSY ---
Subjective Chief Complaint: Schizoaffective Remarks: Patient seen and quiñonez with floor staff, patient chart reviewed patient discussed with nurse. Patient compliant medication. Patient states her mood is improving she is sleeping somewhat better but she still has some occasional suicidal thoughts. Feels she may benefit from another 24-48 hours monitoring here. She also asked about various placements including an LISHA. We will need to explore that with Counselor at this time. For now continue treatment Review of Systems All other systems reviewed negative except as stated in HPI Mental Status Examination Appearance: Appropriate, Other (Patient morbidly obese) Consciousness: Alert Orientation: x4 Motor Activity: Normal gait Speech: Unremarkable Language: Adequate Fund of Knowledge: Adequate Attention and Concentration: Adequate Memory: Unremarkable Mood: Sad (Improving though still endorses occasional suicidal ideation) Affect: Other (Good range and intensity) Thought Process & Associations: Intact, Logical, Goal directed Thought Content: Hallucinations Hallucination Type: None Delusion Type: None Suicidal Ideation: Yes (thoughts of self harm , but does not feel she will act upon them) Suicidal Plan: No Suicidal Intention: No Homicidal Ideation: No Homicidal Plan: No Homicidal Intention: No Insight: Fair Judgment: Adequate Assessment and Plan - Assessment (1) Schizoaffective disorder Code(s): F25.9 - Schizoaffective disorder, unspecified Status: Acute - Plan Plan: Patient depression is lifting somewhat though she still remains with suicidal ideation for now continue treatment Justification for Continued Inpatient Stay: At this time patient would decompensate a place to a lower level of care Discharge Planning: To be determined possibly and an HALFWAY Request Healthcare Surrogate/Guardian Advocate?: No (1) Schizoaffective disorder Qualifiers: Schizoaffective disorder type: depressive Qualified Code(s): F25.1 - Schizoaffective disorder, depressive type
--- NOTE | 2017-11-05 15:39 | P.TTN ---
- Patient Problems Problems: 1. Discharge planning 2. Medication compliance 3. Knowledge deficit 4. Lack of coping skills - Progress Toward Goals Provider Present: Dr. Kailyn Mheta Provider Input: Continue treatment, return home when stable, Nurse(s) Present: Appropriate with staff, med compliant, sleeping well. Psychiatric Counselors Present: Faith Cleveland LCSW, Ed Jolley Jr., [facility], Nemo Cohn, [facility], Other Psychiatric Therapist Input: Psychotic, unstable Group Spec/RT/OT/SKINNER Present: JUANCHO Alcocer Group Spec/RT/OT/SKINNER Input: Pt attends the group activities, patient is social with select peers. - Documentation Teaching Recipient: Patient
[2017-11-06] MEDS: Ibuprofen 600 MG Tablet PO SCH ×2 (06:12→14:07)
[2017-11-06] MEDS: buPROPion 150 MG 12 HR Tablet PO SCH ×2 (08:53→20:36)
[2017-11-06] MEDS: Senna/Docusate Sodium 8.6/50 MG Tablet PO SCH ×2 (09:37→20:35)
--- NOTE | 2017-11-06 15:51 | P.PNPSY ---
Subjective Chief Complaint: Schizoaffective Remarks: Patient seen and quiñonez with nurse Randolph, chart reviewed, patient compliant medications. Patient overall doing good her mood is basically euthymic she is reactive with good eye contact. However she still states she has moments of suicidal ideation and anxiety. I attempted to group counselor her as to the methods of responding to automatic thoughts. She seemed to show some interest in that. For now continue treatment no change Review of Systems All other systems reviewed negative except as stated in HPI Mental Status Examination Appearance: Appropriate, Other (Patient morbidly obese) Consciousness: Alert Orientation: x4 Motor Activity: Normal gait Speech: Unremarkable Language: Adequate Fund of Knowledge: Adequate Attention and Concentration: Adequate Memory: Unremarkable Mood: Sad (Improving though still endorses occasional suicidal ideation) Affect: Other (Good range and intensity) Thought Process & Associations: Intact, Logical, Goal directed Thought Content: Hallucinations Hallucination Type: None Delusion Type: None Suicidal Ideation: Yes (thoughts of self harm , but does not feel she will act upon them) Suicidal Plan: No Suicidal Intention: No Homicidal Ideation: No Homicidal Plan: No Homicidal Intention: No Insight: Fair Judgment: Adequate Assessment and Plan - Assessment (1) Schizoaffective disorder Code(s): F25.9 - Schizoaffective disorder, unspecified Status: Acute - Plan Plan: Patient's mood is improving though she still has occasional suicidal thoughts with anxiety. But overall improving Justification for Continued Inpatient Stay: At this time patient would decompensate a place to a lower level of care Discharge Planning: To be determined Request Healthcare Surrogate/Guardian Advocate?: No (1) Schizoaffective disorder Qualifiers: Schizoaffective disorder type: depressive Qualified Code(s): F25.1 - Schizoaffective disorder, depressive type
[2017-11-07] MEDS: Ibuprofen 600 MG Tablet PO SCH ×2 (04:55→06:16)
[2017-11-07 06:29] VITALS: O2SAT 98
[2017-11-07 07:56] VITALS: BP 143/67; PULSE 95; RESP 18; TEMP 98.3
[2017-11-07] MEDS: buPROPion 150 MG 12 HR Tablet PO SCH (08:32)
[2017-11-07] MEDS: Senna/Docusate Sodium 8.6/50 MG Tablet PO SCH (08:33)
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
== END 2017-11-07 16:35 | disposition home or self-care (01) ==
LOC: NEPJ 12:15 → NEDA 18:52 → H260 20:22
PROVIDERS: ADMIT Psychiatry & Neurology Psychiatry; ATTEND Psychiatry & Neurology Psychiatry